=== PATIENT | male | born 1950 | race Caucasian/White ===

== ENCOUNTER 2016-10-06 07:18 | Day surgery (SDC) | payer OTHER ==
[~2016-10-06] VITALS: Ht 170.2 cm; Wt 87.2 kg
[~2016-10-06 07:18] MED LIST: ASPI81TA2 PO; CALC-39 PO; HYDR25TA PO; LANS30CA58 PO; LIDOCAINE 1% (10mg/ml) 2ml SDV INJ ONE; LORA10TA7 PO; LR 1,000 ML IV SCH; MULT-1243 PO
--- OUTSIDE RECORDS SUMMARY | 2016-10-06 07:22 | XMS REPORT | Summary of Care ---
Author Author Edwardo Bro M.D. Organization Unknown Address [address] [place] [address] [place] [address] Phone Unavailable Care Team Providers Care Programming Internship Name Role Phone Edwardo Bro M.D. Unavailable Unavailable Saulo Britton PP Unavailable Unavailable Unavailable Functional Status Functional Status Health Issues* Name Dates Details Functional status health issues are not documented Status: Cognitive Status Health Issues* Name Dates Details Cognitive status health issues are not documented Status: Problems Name Dates Details History of Elevated PSA (790.93, R97.2) Status: Resolved Prophylactic antibiotic (V58.62, Z79.2) Status: Active Incomplete bladder emptying (788.21, R33.9) Status: Active BPH (benign prostatic hypertrophy) with urinary obstruction (600.01, N40.1) Status: Active Medications Name Dates Details Rapaflo 8 MG Oral Capsule TAKE 1 CAPSULE DAILY WITH FOOD. Edwardo Bro M.D.* Started 01-May-2015 ActiveTamsulosin HCl - 0.4 MG Oral Capsule TAKE 1 TABLET BY MOUTH DAILY * Refills: 0 * Started 01-May-2015 ActiveCalcium + D3 600-200 MG-UNIT Oral Tablet TAKE 1 TABLET DAILY. * Refills: 0 * Started 01-May-2015 ActiveLoratadine 10 MG Oral Tablet TAKE 1 TABLET DAILY NEEDED. * Refills: 0 * Started 01-May-2015 ActiveHydrochlorothiazide 25 MG Oral Tablet TAKE 1/2 TABLET DAILY. * Refills: 0 * Started 01-May-2015 ActiveCentrum Silver Oral Tablet TAKE 1 TABLET DAILY. * Refills: 0 Edwardo Bro M.D.* Started 01-May-2015 ActiveAspirin 81 MG Oral Tablet TAKE 1 TABLET DAILY. * Refills: 0 Edwardo Bro M.D.* Started 01-May-2015 ActiveLansoprazole 30 MG Oral Capsule Delayed Release * Refills: 0 * Started 29-May-2015 ActiveCiprofloxacin HCl - 500 MG Oral Tablet TAKE 1 TABLET ONE TIME ONLY * Quantity: 1 Refills: 0 Edwardo Bro M.D.* Started 16-Jun-2015 Active Allergies and Adverse Reactions Name Dates Details No Known Allergies Status: Active Past Medical History Name Dates Details H/O chronic prostatitis (V13.89, Z87.438) Status: Resolved History of Chronic interstitial cystitis (595.1, N30.10) Status: Resolved History of Elevated PSA (790.93, R97.2) Status: Resolved Procedures Procedure Dates Details History of Cataract Extraction History of Colonoscopy History of Umbilical Hernia Repair History of Cystoscopy (Diagnostic) History of Biopsy Of The Prostate Needle Procedures not documented Immunization Name Dates Details Immunizations not documented Family History Unknown Family Member* Name Dates Details Family history of malignant neoplasm of prostate (V16.42, Z80.42) Comments: Family History Status: Active Family history of hypertension (V17.49, Z82.49) Comments: Family History Status: Active Father* Name Dates Details Family history of malignant neoplasm (V16.9, Z80.9) Status: Active Social History Name Dates Details Smoking Status* Former smoker Vital Signs Date Test Result Details 17-Jun-2015 10:11 BP Systolic 133 mm[Hg] Status: BP Diastolic 71 mm[Hg] Status: Heart Rate 73 /min Status: Results Date Description Value Details Results not documented Plan of Care Planned Observations* Name Dates Details Planned Goals not documented Goal Planned Encounters* Appointment; Provider: Edwardo Bro On 03-Jun-2016 11:15 * Appointment; Provider: Edwardo Bro On 07-Jul-2015 07:00 Instructions * Instructions not documented Encounters Appointment; Edwardo Bro Encounter Diagnosis: Problem not documented On 17-Jun-2015 10:00 Appointment; Edwardo Bro Encounter Diagnosis: Problem not documented On 29-May-2015 09:00
--- OUTSIDE RECORDS SUMMARY | 2016-10-06 07:22 | XMS REPORT | Summary of Care ---
Author Author Edwardo Bro M.D. Organization Unknown Address [address] [place] [address] [place] [address] Phone Unavailable Care Team Providers Care Solder Sprayer Name Role Phone Edwardo Bro M.D. Unavailable Unavailable Saulo Britton Unavailable Unavailable Unavailable Unavailable Functional Status Name Dates Details Functional status health issues are not documented Status: Name Dates Details Cognitive status health issues are not documented Status: Problems Name Dates Details Prophylactic antibiotic (V58.62, Z79.2) Status: Active Encounter for postoperative care (V58.49, Z48.89) Status: Active S/P TURP (status post transurethral resection of prostate) (V45.89, Z90.79) Status: Active History of BPH with urinary obstruction (600.01, N40.1) Status: Resolved Decreased libido (799.81, R68.82) Status: Active History of Elevated PSA (790.93, R97.20) Status: Resolved Medications Name Dates Details Calcium + D3 600-200 MG-UNIT Oral Tablet TAKE 1 TABLET DAILY. * Start 01-May-2015 Active Loratadine 10 MG Oral Tablet TAKE 1 TABLET DAILY NEEDED. * Refills: 0 * Start 01-May-2015 Active HydroCHLOROthiazide 25 MG Oral Tablet TAKE 1/2 TABLET DAILY. * Refills: 0 * Start 01-May-2015 Active Centrum Silver Oral Tablet TAKE 1 TABLET DAILY. * Refills: 0 Dieudonne Calhoun.Terrance.Edwardo * Start 01-May-2015 Active Aspirin 81 MG TABS TAKE 1 TABLET DAILY. * Refills: 0 Cho M.DMauricio, Edwardo * Start 01-May-2015 Active Lansoprazole 30 MG Oral Capsule Delayed Release * Refills: 0 * Start 29-May-2015 Active Allergies and Adverse Reactions Name Dates Details No Known Allergies (Allergy) Status: Active Past Medical History Name Dates Details H/O chronic prostatitis (V13.89, Z87.438) Status: Resolved History of BPH (benign prostatic hypertrophy) with urinary obstruction (600.01 , N40.1) Status: Resolved History of BPH with urinary obstruction (600.01, N40.1) Status: Resolved History of Chronic interstitial cystitis (595.1, N30.10) Status: Resolved History of Elevated PSA (790.93, R97.20) Status: Resolved History of Incomplete bladder emptying (788.21, R33.9) Status: Resolved Procedures Procedure Dates Details History of Cataract Extraction History of Colonoscopy History of Umbilical Hernia Repair History of Cystoscopy (Diagnostic) History of Biopsy Of The Prostate Needle PSA ( PROSTATE SPECIFIC ANTIGEN) 3100 Ordered: 08-Jun-2016 Testosterone 3102 Ordered: 08-Jun-2016 Immunization Name Dates Details Immunizations not documented Family History Name Dates Details Family history of malignant neoplasm of prostate (V16.42, Z80.42) Comments: Family History Status: Active Family history of hypertension (V17.49, Z82.49) Comments: Family History Status: Active Name Dates Details Family history of malignant neoplasm (V16.9, Z80.9) Status: Active Social History Name Dates Details - Status: Name Dates Details Former smoker Vital Signs Date Test Result Details 08-Jun-2016 12:39 BP Systolic 143 mm[Hg] Status: Comments: Location: ; Position: BP Diastolic 87 mm[Hg] Status: Comments: Location: ; Position: Heart Rate 65 /min Status: Comments: Location: ; Weight 190 lb Status: Body Mass Index Calculated 29.76 kg/m2 Status: Body Surface Area Calculated 1.98 m2 Status: Results Date Description Value Details Results not documented Plan of Care Name Dates Details Planned Observations Planned Goals not documented Planned Encounters Appointment; Provider: Edwardo Bro M.D. On 09-Jun-2017 13:30 Interventions Provided Labs/Procedures/Imaging* PSA ( PROSTATE SPECIFIC ANTIGEN) 3100; To be Done: 08 Jun 2016 * Testosterone 3102; To be Done: 08 Jun 2016 Instructions Name Dates Details Instructions not documented Encounters Appointment; Edwardo Bro M.D. Encounter Diagnosis: Problem not documented On 09:45 Appointment; Edwardo Bro M.D. Encounter Diagnosis: Problem not documented On 12-Aug-2015 09:45 Appointment; Edwardo Bro M.D. Encounter Diagnosis: Problem not documented On 22-Jul-2015 15:15 Appointment; Edwardo Bro M.D. Encounter Diagnosis: Problem not documented On 17-Jun-2015 10:00 Appointment; Edwardo Bro M.D. Encounter Diagnosis: Problem not documented On 29-May-2015 09:00
--- OUTSIDE RECORDS SUMMARY | 2016-10-06 07:22 | XMS REPORT | Summary of Care ---
Author Author Edwardo Bro M.D. Organization Unknown Address [address] [place] [address] [place] [address] Phone Unavailable Care Team Providers Care Tile Layer Name Role Phone Edwardo Bro M.D. Unavailable [...] obstruction (600.01, N40.1) Status: Resolved History of Elevated PSA (790.93, R97.2) Status: Resolved Decreased libido (799.81, R68.82) Status: Active Medications Name Dates Details Calcium + D3 600-200 MG-UNIT Oral Tablet TAKE 1 TABLET DAILY. * Started 01-May-2015 ActiveLoratadine 10 MG Oral Tablet TAKE 1 TABLET DAILY NEEDED. * Refills: 0 * Started 01-May-2015 ActiveHydrochlorothiazide 25 MG Oral Tablet TAKE 1/2 TABLET DAILY. * Refills: 0 * Started 01-May-2015 ActiveCentrum Silver Oral Tablet TAKE 1 TABLET DAILY. * Refills: 0 Edwardo Bro M.D.* Started 01-May-2015 ActiveAspirin 81 MG TABS TAKE 1 TABLET DAILY. * Refills: 0 Edwardo Bro M.D.* Started 01-May-2015 ActiveLansoprazole 30 MG Oral Capsule Delayed Release * Refills: 0 * Started 29-May-2015 Active Allergies and Adverse Reactions Name [...] of Elevated PSA (790.93, R97.2) Status: Resolved History of Incomplete bladder emptying [...] smoker Vital Signs Date Test Result Details 10:01 BP Systolic 138 mm[Hg] Status: BP Diastolic 89 mm[Hg] Status: Heart Rate 60 /min Status: Height 67 in Status: Weight 190 lb Status: Body Mass Index [...] Instructions not documented Encounters Appointment; Edwardo Bro Diagnosis: Problem not documented On 09:45 Appointment; Edwardo Bro Diagnosis: Problem not documented On 12-Aug-2015 09:45 Appointment; Edwardo Bro Encounter Diagnosis: Problem not documented On 22-Jul-2015 15:15 Appointment; Edwardo Bro Diagnosis: Problem not documented On 17-Jun-2015 10:00 Appointment; Edwardo Bro Diagnosis: Problem not documented On 29-May-2015 09:00
--- OUTSIDE RECORDS SUMMARY | 2016-10-06 07:23 | XMS REPORT | Summary of Care ---
Author Author Edwardo Bro M.D. Organization Unknown Address [address] [place] [address] [place] [address] Phone Unavailable Care Team Providers Care Glost Tile Sorter Name Role Phone Edwardo Bro M.D. Unavailable [...] Resolved Prophylactic antibiotic (V58.62, Z79.2) Status: Active Encounter for postoperative care (V58.49, Z48.89) Status: Active S/P TURP (status post transurethral resection of prostate) (V45.89, Z90.79) Status: Active History of BPH with urinary obstruction (600.01, N40.1) Status: Resolved Medications Name Dates Details Calcium [...] smoker Vital Signs Date Test Result Details 12-Aug-2015 09:29 BP Systolic 148 mm[Hg] Status: BP Diastolic 94 mm[Hg] Status: Heart Rate 60 /min Status: Height 67 in Status: Weight 190 lb Status: Body Mass Index Calculated 29.76 kg/m2 Status: Body Surface Area Calculated 1.98 m2 Status: 22-Jul-2015 15:12 BP Systolic 148 mm[Hg] Status: BP Diastolic 85 mm[Hg] Status: Heart Rate 78 /min Status: Height 67 in Status: Weight 190 lb Status: Body Mass Index Calculated 29.76 kg/m2 Status: Body Surface Area Calculated 1.98 m2 Status: Results Date Description Value Details Results not documented Plan of Care Planned Observations* Name Dates Details Planned Goals not documented Goal Planned Encounters* Appointment; Provider: Edwardo Bro On 03-Jun-2016 11:15 * Appointment; Provider: Edwardo Bro On 09:45 * Appointment; Provider: Edwardo Bro On 07-Jul-2015 07:00 Instructions * Instructions not documented Encounters Appointment; Edwardo Bro Diagnosis: Problem not documented On 12-Aug-2015 09:45 Appointment; Edwardo Bro Diagnosis: Problem not documented On 22-Jul-2015 15:15 Appointment; Edwardo Bro Diagnosis: Problem not documented On 17-Jun-2015 10:00 Appointment; Edwardo Bro Diagnosis: Problem not documented On 29-May-2015 09:00
--- OUTSIDE RECORDS SUMMARY | 2016-10-06 07:23 | XMS REPORT | Summary of Care ---
Author Author Edwardo Bro M.D. Organization Unknown Address [address] [place] [address] [place] [address] Phone Unavailable Care Team Providers Care Blasting Contract Man Name Role Phone Edwardo Bro M.D. Unavailable [...] resection of prostate) (V45.89, Z90.79) Status: Active Medications Name Dates Details Calcium [...] (600.01 , N40.1) Status: Resolved History of Chronic interstitial [...] smoker Vital Signs Date Test Result Details 22-Jul-2015 15:12 BP Systolic 148 mm[Hg] Status: [...] 11:15 * Appointment; Provider: Edwardo Bro On 12-Aug-2015 09:45 * Appointment; Provider: Edwardo Bro On 07-Jul-2015 07:00 Instructions * Instructions not documented Encounters Appointment; Edwardo Bro Encounter Diagnosis: Problem not documented On 22-Jul-2015 15:15 Appointment; Edwardo Bro Encounter Diagnosis: Problem not documented On 17-Jun-2015 10:00 Appointment; Edwardo Bro Encounter Diagnosis: Problem not documented On 29-May-2015 09:00
--- OUTSIDE RECORDS SUMMARY | 2016-10-06 07:23 | XMS REPORT | Summary of Care ---
Author Author Edwardo rBo M.D. Organization Unknown Address [address] [place] [address] [place] [address] Phone Unavailable Care Team Providers Care Padded Products Finisher Name Role Phone Edwardo Bro M.D. Unavailable [...]
--- OUTSIDE RECORDS SUMMARY | 2016-10-06 07:23 | XMS REPORT | Summary of Care ---
Author Author Edwardo Bro M.D. Organization Unknown Address [address] [place] [address] [place] [address] Phone Unavailable Care Team Providers Care Pet Training Instructor Name Role Phone Edwardo Bro M.D. Unavailable [...] m2 Status: Results Date Description Value Details 09-Jun-2016 09:00 PSA ( PROSTATE SPECIFIC ANTIGEN) 3100 Comments: Items were attached to this order: TEST PROSTATE SPECIFIC ANTIGEN 0.480 ng/mL Range: 0.000-4.000 09:01 Testosterone 3102 Comments: Items were attached to this order: TEST TST 210 ng/dL (Below low threshold) Range: 241-827 Plan of Care Name Dates Details Planned Observations Planned Goals not documented Planned Encounters Appointment; Provider: Edwardo Bro M.D. On 09-Jun-2017 13:30 Instructions Name Dates Details Instructions not documented Encounters Appointment; Edwardo Bro M.D. Encounter Diagnosis: Problem not documented On 08-Jun-2016 12:30 Appointment; Edwardo Bro M.D. Encounter Diagnosis: Problem [...]
--- OUTSIDE RECORDS SUMMARY | 2016-10-06 07:23 | XMS REPORT | Referral Summary ---
Author Organization Unknown Address Unknown Phone Unavailable Care Team Providers Care Woods Boss Name Role Phone Erinn Britton Primary Care Physician [phone] Encounter [facility] [id number] Date(s): 08/12/14 - 08/12/14 [facility] [address] [place] [address]- [place] Discharge Diagnosis: Hemorrhoids Discharge Diagnosis: Bright red rectal bleeding Discharge Disposition: Home or Self Care Attending Physician: Fabricio Gamboa MD Admitting Physician: Fabricio Gamboa MD Referring Physician: Saulo Britton MD Vital Signs Most recent to 1 oldest [Reference Range]: Temperature Tympanic 36.8 degC [36.6-38.1 degC] (08/12/14 2:58 PM) Blood Pressure 124/80 mmHg [90-140/60-90 mmHg] (08/12/14 2:58 PM) Problem List Condition Effective Dates Status Health Status Informant BPH (benign Active prostatic hyperplasia)(Confirm ed) Hypertension(Confirm Active ed) Tobacco Active patient user(Confirmed) Allergies, Adverse Reactions, Alerts Substance Reaction Severity Status lisinopril1 Medium Active 1COUGH Medications Anusol-HC 25 mg rectal suppository 1 supp, Rectal, BID, X 14 days, # 28 supp, 1 Refill(s), Pharmacy: [facility] [id number], 1 supp Rectal BID,x14 days Start Date: 08/12/14 Stop Date: 09/09/14 Status: Ordered Aspir 81 mg, Oral, Daily, 0 Refill(s) Start Date: 08/08/14 Status: Ordered Calcium 600+D 2 tabs, Oral, Daily, 0 Refill(s) Start Date: 08/08/14 Status: Ordered Centrum Silver Daily, 0 Refill(s) Start Date: 08/08/14 Status: Ordered Flomax 0.4 mg oral capsule 1 caps, Oral, Daily, # 30 caps, 0 Refill(s) Start Date: 08/08/14 Status: Ordered hydrochlorothiazide 25 mg oral tablet 0.5 tabs, Oral, Daily, 0 Refill(s) Start Date: 08/08/14 Status: Ordered Proctofoam HC 1%-1% rectal foam 1 baylee, Rectal, TID, # 10 g, 1 Refill(s), Pharmacy: [facility] [id number] Start Date: 08/12/14 Stop Date: 08/26/14 Status: Ordered Rapaflo 8 mg oral capsule 1 caps, Oral, Daily, # 30 caps, 0 Refill(s) Start Date: 08/08/14 Status: Ordered ZyrTEC 10 mg oral tablet tabs, Oral, Daily, 0 Refill(s) Start Date: 08/08/14 Status: Ordered Results No data available for this section Immunizations No data available for this section Procedures Procedure Date Related Diagnosis Body Site Colonoscopy1 12/06/10 Retina tear2 2010 Prostate biopsy sample 2009 Repair of inguinal hernia3 08/28/08 Ear drum 2009 Colonoscopy4 11/28/05 Retina tear5 2003 Bakers cyst 1960 1NO Evidence of lesions,polyps,or luis miguel malignancies.Found minimal number diverticula within sigmoid colon.HX. of Adenomatous polyps Repeat 5yrs. 2LEFT 3left 4FEW SCATTERED DIVERTICULA,, SINGLE Adenomatous Polyp AT 10CM FROM ANAL VERGE 7cm In Diameter.Repeat 5yrs. 5RIGHT /CATARACT Social History Social History Type Response Smoking Status Former smoker; Type: Cigarettes1 1QUIT AT 36 Assessment and Plan Extracted from: Title: Ambulatory Patient Education Author: Fabricio Gamboa MD Date: Family Medicine Hemorrhoids Hemorrhoids are swollen veins around the rectum or anus. There are two types of hemorrhoids: Internal hemorrhoids. These occur in the veins just inside the rectum. They may poke through to the outside and become irritated and painful. External hemorrhoids. These occur in the veins outside the anus and can be felt as a painful swelling or hard lump near the anus. CAUSES . Obesity. Constipation or diarrhea. Straining to have a bowel movement. Sitting for long periods on the toilet. Heavy lifting or other activity that caused you to strain. Anal intercourse. SYMPTOMS Pain. Anal itching or irritation. Rectal bleeding. Fecal leakage. Anal swelling. One or more lumps around the anus. DIAGNOSIS Your caregiver may be able to diagnose hemorrhoids by visual examination. Other examinations or tests that may be performed include: Examination of the rectal area with a gloved hand (digital rectal exam ). Examination of anal canal using a small tube (scope ). A blood test if you have lost a significant amount of blood. A test to look inside the colon (sigmoidoscopy or colonoscopy ). TREATMENT Most hemorrhoids can be treated at home. However, if symptoms do not seem to be getting better or if you have a lot of rectal bleeding, your caregiver may perform a procedure to help make the hemorrhoids get smaller or remove them completely. Possible treatments include: Placing a rubber band at the base of the hemorrhoid to cut off the circulation (rubber band ligation ). Injecting a chemical to shrink the hemorrhoid (sclerotherapy ). Using a tool to burn the hemorrhoid (infrared light therapy ). Surgically removing the hemorrhoid (hemorrhoidectomy ). Stapling the hemorrhoid to block blood flow to the tissue (hemorrhoid stapling ). HOME CARE INSTRUCTIONS Eat foods with fiber, such as whole grains, beans, nuts, fruits, and vegetables. Ask your doctor about taking products with added fiber in them ( fiber supplements ). Increase fluid intake. Drink enough water and fluids to keep your urine clear or pale yellow. Exercise regularly. Go to the bathroom when you have the urge to have a bowel movement. Do not wait. Avoid straining to have bowel movements. Keep the anal area dry and clean. Use wet toilet paper or moist towelettes after a bowel movement. Medicated creams and suppositories may be used or applied as directed. Only take ryah-[id number]-[id number] or prescription medicines as directed by your caregiver. Take warm sitz baths for 1520 minutes, 34 times a day to ease pain and discomfort. Place ice packs on the hemorrhoids if they are tender and swollen. Using ice packs between sitz baths may be helpful. Put ice in a plastic bag. Place a towel between your skin and the bag. Leave the ice on for 1520 minutes, 34 times a day. Do not use a donut-shaped pillow or sit on the toilet for long periods. This increases blood pooling and pain. SEEK MEDICAL CARE IF: You have increasing pain and swelling that is not controlled by treatment or medicine. You have uncontrolled bleeding. You have difficulty or you are unable to have a bowel movement. You have pain or inflammation outside the area of the hemorrhoids. MAKE SURE YOU: Understand these instructions. Will watch your condition. Will get help right away if you are not doing well or get worse. Document Released: 06/02/2001 Document Revised: 05/22/2013 Document Reviewed: [facility] Patient Information 2014 [employer], [facility]. No follow up information was provided.
[2016-10-06 07:30] VITALS: BP 135/89; PULSE 67; RESP 16; TEMP 98.3; O2SAT 98
[2016-10-06 07:31] VITALS: Ht 170.2 cm; Wt 87.2 kg
--- NOTE | 2016-10-06 08:27 | ANESPREOP ---
Anesthesia Record Date and Time DATE: 10/06/16 TIME: 08:23 Pre-Op Diagnosis screening, personal history of colon polyps Proposed Surgical Procedure COLONOSCOPY NPO since: mn Allergies: Coded Allergies: No Known Drug Allergies (Verified Allergy, Unknown, 10/06/16) Ht/Wt/BMI Height: 5 ' 7.00 " Weight: 87.200 kg BMI: 30.1 kg/m2 Vital Signs Date Time Temp Pulse Resp B/P Pulse Ox O2 Delivery O2 Flow Rate FiO2 10/06/16 07:30 98.3 67 16 135/89 98 Room Air Medications Inpatient Medications Current Medications Medications (Trade) Dose Ordered Sig/Bhakti Start Time Stop Time Status Last Admin Dose Admin Lactated Ringer's (Lactated Ringers) 1,000 ml @ 50 mls/hr Q20H 10/06/16 07:00 10/06/16 07:46 50 MLS/HR Aspirin (Aspirin) 81 Mg Tab.chew, 1 TAB PO DAILY, (Reported) Last Taken: on 09/28/16 Calcium Carbonate/Vitamin D3 (Calcium 600 + Vit D Tablet) 1 Each Tablet, 1 TAB PO DAILY, (Reported) Last Taken: on 10/05/16 09 Hydrochlorothiazide (Hydrochlorothiazide) 25 Mg Tablet, 1 TAB PO WB, (Reported) Last Taken: on 10/05/16 09 Lansoprazole (Lansoprazole) 30 Mg Capsule.dr, 1 CAP PO DAILY, (Reported) Last Taken: on 10/05/16 09 Loratadine (Loratadine) 10 Mg Tablet, 10 MG PO DAILY, (Reported) Take 1 tablet, by mouth, one time a day (before breakfast). Last Taken: on 10/05/16 09 Multivits-Min/FA/Lycopene/Lut (Centrum Silver Tablet) 1 Each Tablet, 1 TAB PO DAILY, (Reported) Last Taken: on 10/05/16 0900 Currently on Beta Jer: No Medical/Surgical History Anesthesia PMH: Reports: *Hypertension (cardiac testing one yerar ago, GERD ), Asthma ( CHILD-NO INHALER), Pneumonia (HX OF), Reflux, Denies: *Diabetes, * Dyspnea, Anesthesia Reactions (NO AIRWAY ISSUES ), COPD, Cancer, Clotting Problems, Glaucoma, Malignant Hyperthermia, Sleep Apnea, Thyroid Disease, Tuberculosis Smoking Status: Former smoker (quit in ) # of Packs per Day: 1 # of Years: 15 Use Chewing Tobacco?: No Past Surgical History Orthopedic Surgeries: Yes - hand-tendon reconstruction- left 3rd finger Abdominal Surgeries: Yes - 2008 HERNIA Genitourinary Surgeries: Cardiac Surgeries: Endocrine Surgeries: Reproductive Surgeries: Yes - VASECTOMY 1993, TURP Neurological Surgeries: Ear Surgeries: Yes - R EAR DRUM RUPTURE- REPAIR NOT SUCCESSFUL Nose Surgeries: Throat Surgeries: Other Surgeries: Yes - CATARACTS 1993, LASIK 1995,RETINA REPAIR BILATERAL, YAG Anesthesia Adverse Reactions: FOUND none Family Hx of Anesthesia Advers: none Pertinent Findings EKG Rhythm: Sinus Rhythm Physical Exam Respiratory: Bilat breath sounds equal, Lungs clear Cardiovascular: FOUND Regular rate, rhythm, FOUND No murmur Airway Assessment Mallampati Score: I TMD: 3 Fingerbreadths Neck Extension: Good Overall Assessment: No Airway Concerns ASA: 3 Plan Anesthesia Plan: TIVA Discussion Discussed risks/options/alternatives of anesthesia and questions answered. Patient consents. Nursing pain assessment noted. Attestation Statement Prior to the delivery of any anesthetic medication, I examined the patient, developed the plan, obtained the patient's consent and discussed the risk and benefits of the procedure with the patient/guardian. TRAE KEENAN ROUGH RICE GRADER Oct 06, 2016 08:26
[2016-10-06] MEDS ORDERED: LIDOCAINE 2% (20mg/ml) 5ml PF SDV ONE (09:14)
[2016-10-06] MEDS ORDERED: PROPOFOL 500mg 50 ML IV ONE (09:14)
[2016-10-06 09:36] VITALS: BP 102/67; PULSE 62; RESP 12; TEMP 97.1; O2SAT 94
[2016-10-06 09:51] VITALS: BP 108/72; PULSE 62; RESP 16; O2SAT 94
[2016-10-06 10:06] VITALS: BP 122/83; PULSE 64; RESP 16; O2SAT 96
[2016-10-06 10:21] VITALS: BP 126/86; PULSE 62; RESP 16; O2SAT 97
--- NOTE | 2016-10-06 10:32 | ANESPO ---
Post-Op Note Date 10/06/16 Time: 10:15 Status Pt Participated in Evaluation: Pt participated in person Vital Signs Date Time Temp Pulse Resp B/P Pulse Ox O2 Delivery O2 Flow Rate FiO2 10/06/16 10:21 62 16 126/86 97 Room Air 10/06/16 09:36 97.1 Respiratory Function: Airway patent Mental Status: Alert/oriented Pain Level Intensity: 0 Hydration: IV infusing Complications during Recovery None apparent Follow-Up Instructions Instructions Per Surgeon TRAE KEENAN CRNA Oct 06, 2016 10:32
--- NOTE | 2016-10-07 07:46 | OPNOTEF ---
DATE OF PROCEDURE: 10/06/2016 SURGEON: Saulo Britton MD PREOPERATIVE DIAGNOSIS Colorectal cancer surveillance. POSTOPERATIVE DIAGNOSES Colorectal cancer surveillance, mild sigmoid diverticulosis. PROCEDURE: Colonoscopy. ANESTHESIA: TIVA. BRIEF HISTORY/INDICATIONS Perez is a 65-year-old male patient of mine who is here for colonoscopy. He has had colon polyps in the past. Current recommendation is five years. For completeness, please refer to office notes. FINDINGS Upon this colonoscopy there was no evidence for angiodysplastic lesions, polyps or luis miguel malignancies. The patient was found to have mild sigmoid diverticulosis. NARRATIVE OF PROCEDURE After informed consent was obtained, the patient was brought to the endoscopy suite and placed on the table in the left lateral decubitus position. The patient subsequently underwent total intravenous anesthesia by the nurse health and safety specialist per my request. Next, a digital rectal examination was performed. Normal sphincter tone. No rectal masses were appreciated. An Olympus colonoscope was inserted in the anus and advanced with the lumen of the colon under direct visualization at all times until the cecum was ascertained. Triangulation of the tenia coli, ileocecal valve and appendiceal lumen were all visualized. The scope was then slowly withdrawn, again maintaining visualization of the lumen at all times. As stated above, the entire colon was without evidence for angiodysplastic lesions, polyps or luis miguel malignancies. The patient was found to have mild sigmoid diverticulosis within the sigmoid colon region. The scope continued to be withdrawn until it was brought forth back into the rectal vault. A J-maneuver was then performed. No worrisome perianal pathology was noted. The scope was allowed to straighten and was withdrawn through the anal verge. The patient tolerated the procedure without difficulty and was sent back to the preoperative area in stable condition. Secondary to the absence of findings upon this colonoscopy, my recommendation is a repeat colonoscopy in five years due to his personal history of polyps. If his next colonoscopy fails to reveal any polyps, will go to 10 years. ALAINA
== END 2016-10-06 10:29 | disposition home or self-care (01) ==
LOC: NSC 07:18
PROVIDERS: ATTEND Family Medicine
DX: Z12.11 Encounter for screening for malignant neoplasm of colon (principal); K57.30 Diverticulosis of large intestine without perforation or abscess without bleeding; Z86.010 Personal history of colon polyps; K21.9 Gastro-esophageal reflux disease without esophagitis; I10 Essential (primary) hypertension; J30.2 Other seasonal allergic rhinitis; D29.1 Benign neoplasm of prostate; Z79.82 Long term (current) use of aspirin; Z79.899 Other long term (current) drug therapy
CPT/HCPCS: 45378; J7120